=== PATIENT | male | born 1990 | race Caucasian/White ===

== ENCOUNTER 2017-07-19 23:30 | Emergency (ER) | payer MEDICARE ==
--- NOTE | 2017-07-20 00:07 | ED Physician Chart ---
ED Chief Complaint/HPI - Patient Information Date Seen:: 07/19/17 Time Seen:: 23:40 Chief Complaint:: laceration right long finger History of Present Illness:: At about 11:30 yesterday morning patient cut his right long finger on broken glass. Laceration has bled intermittently since then. Patient is right-hand dominant. Last tetanus booster was one year ago. Allergies:: Allergies Allergy/AdvReac Type Severity Reaction Status Date / Time No Known Allergies Allergy Verified 07/19/17 23:53 Vitals:: Vital Signs - 8 hr 07/19/17 23:30 Temp 98.1 F HR 69 RR 20 BP 115/79 O2 Sat % 99 Historian:: Patient Review:: Nurse's Note Reviewed ED Review of Systems - Review of Systems General/Constitutional: No fever, No chills Skin: No skin lesions Head: No headache Eyes: No loss of vision ENT: No earache Neck: No neck pain, No swelling Cardio Vascular: No chest pain, No palpitations Pulmonary: No SOB GI: No nausea, No vomiting, No diarrhea G/U: No dysuria Musculoskeletal: No bone or joint pain Endocrine: No polyuria Psychiatric: No prior psych history Hematopoietic: No bruising Allergic/Immuno: No urticaria Neurological: No syncope ED Past Medical History - Past Medical History Past Medical History: No significant medical hx Family History: None Social History: Non Smoker, No Alcohol Surgical History: None Psychiatricy History: None ED Physical Exam - Physical Examination General/Constitutional: Well-developed, well-nourished, Alert, No distress Eyes: Lids, conjuctiva normal Other Skin comments:: 1 cm oblique laceration over the dorsal proximal interphalangeal joint of the right long finger; strength of extension of the right long finger intzct and sensation intact distal to the laceration ENMT: External ears, nose nl Neck: No nuchal rigidity Respiratory: Nl effort/Exclusion Cardio Vascular: RRR GI: No tenderness/rebounding/guarding : No CVA tenderness Extremities: No tenderness or effusion Neuro/Psych: No focal deficits Misc: Normal back ED Assessment Prep/Irrigation:: Skin cleansed with Betadine solution; 1 percent Xylocaine used for digital block ; laceration irrigated with normal saline 5-0 chromic 5 or 6 running sutures used to close the laceration; ED Septic Shock - . Is Septic Shock (SBP<90, OR Lactate>4 mmol\L) present?: No - <6hrs of presentation: Vital Signs: Vital Signs - 8 hr 07/19/17 23:30 Temp 98.1 F HR 69 RR 20 BP 115/79 O2 Sat % 99 ED Reassessment (Disposition) - Reassessment Reassessment Condition:: Improved - Diagnosis Diagnosis:: 1 cm laceration right long finger - Aftercare/Follow up Instructions Aftercare/Follow-Up Instructions:: Refer to Discharge Instructions - Patient Disposition Discharge/Transfer:: Home Condition at Disposition:: Stable, Improved
== END 2017-07-20 01:30 | disposition home or self-care (01) ==
LOC: ER 23:30
DX: S61.212A Laceration without foreign body of right middle finger without damage to nail, initial encounter (principal); W25.XXXA Contact with sharp glass, initial encounter; Y93.89 Activity, other specified; Y92.89 Other specified places as the place of occurrence of the external cause; Y99.8 Other external cause status
CPT/HCPCS: 12001; J2001; Z7502; Z7610